=== PATIENT | male | born 1995 | race Caucasian/White ===

== ENCOUNTER 2021-09-03 21:21 | Emergency (ER) | payer BC ==
[2021-09-03] MEDS ORDERED: Ondansetron 4 MG/2 ML SDV IVPUSH ONE (22:12)
[2021-09-03] MEDS ORDERED: Sodium Chloride 0.9% 1,000 ML IV ONE (22:13)
[2021-09-03 22:19] LABS: CORONAVIRUS COVID-19 NAA NEGATIVE (NEGATIVE)
--- NOTE | 2021-09-03 22:21 | EDM.PDOC ---
ED HPI GENERAL MEDICAL PROBLEM - General Chief Complaint: Gastrointestinal Problem Stated Complaint: [facility] Time Seen by Provider: 09/03/21 21:49 Source of Information: Reports: Patient History Limitations: Reports: Physical Impairment (Patient appearing nearly faint, barely able to speak) - History of Present Illness INITIAL COMMENTS - FREE TEXT/NARRATIVE: Mr. Montalvo is a 26-year-old man who now presents the ED complaining of generalized abdominal pain, nausea, and vomiting. Initially he had indicated that his nausea and vomiting had started on Sunday or Sunday, 08/30/2021 or 08/31/2021, but after some further questioning, he acknowledged that it has been chronic for the past 2 years. He describes the character of the pain as "It hurts". He states that it is constant, and that he has not identified any modifiers. The patient states that he saw a reflexologist in [place] about 5 or 6 months ago, and then an EGD was performed. Initially he stated that the EGD demonstrated gastritis and a polyp, but he later stated that the EGD found nothing. He states that he was prescribed pantoprazole 40 mg, and that he takes (either 1 or 2 tablets of it) every morning. The patient also reports that his face is tingling and that he has bilateral hand cramps. He states that he ran out of his lorazepam 5 or 6 days ago. Medical records acquired from [facility] in [place] indicate that the patient was seen in their ED on both , 09/01/2021 and yesterday, 09/02/2021. He reported on 09/01/2021 that he was suffering from an exacerbation of his chronic daily episodes of hand spasms combined with a feeling of weakness, bilateral arm numbness, chest and abdominal pain, along with facial pain and numbness. He reported that his PCP in [place] had done an extensive work-up and recommended referral to neurology, psychiatry, and gastroenterology. He states that he followed up with a reflexologist, and were unable to find any problem for his epigastric and chest pain. The patient had reported that his mother and sister had similar symptoms as his, and that his sister had been prescribed lorazepam. He reported that he had taken his sisters lorazepam frequently over the years, which helped with some of his symptoms. His sister, however, was no longer seeing her Psychiatrist, and therefore the patient had been unable to get any of her lorazepam for several months, although the ED physician stated that the patient's history is unchanged, and that he reported that he had been in [place] a month ago, and was able to acquire some lorazepam at that time. He later denied that that was the case, stating that it was several months ago. The patient had not followed up with neurology or psychiatry, and he had further reported that he had lost establishment with his PCP in [place]. The patient reported that when the episodes occur, typically once or twice a day, that he is usually able to relax, do focused breathing, and the symptoms would resolve, but when they do not, he typically goes to a hospital to get morphine or Dilaudid, and Valium. He acknowledged that work-ups at the hospitals were unremarkable. Work-up on 09/01/2021 included a CBC, CMP, magnesium level, troponin, CRP, alcohol level, a urinalysis, a urine drug screen, a swab for the SARS-CoV-2 virus, and 2 ECGs. Work-up on 09/02/2021 included a CBC, CMP, magnesium level, phosphorus level, amylase, lipase, troponin, CPK, CRP, ferritin level, alcohol level, and urine drug screen. In both cases, the patient's urine drug screen was positive for benzodiazepines, and was also positive for buprenorphine on 09/01/2021, although negative for buprenorphine on 09/02/2021. His work-ups were otherwise unremarkable. The patient states that following his work-up yesterday, he was discharged with a prescription for Zofran ODT. [facility], the patient's initial BP was found to be elevated at 183/103, with slight bradycardia 58 bpm. He was afebrile, saturating 100% on room air. He appears to be overly dramatic, keeping his eyes closed, barely moving, and speaking in a whisper. Does not appear to be in acute distress. The patient denies having a recent fever, chills, sore throat, ear pain, nasal or sinus congestion, cough, dyspnea, chest pain, palpitations, constipation, diarrhea, urinary symptoms, recent weight gain or weight loss, recent bloody bowel movements or black bowel movements, recent joint aches, headaches, or rashes. The patient does not have a PCP, although he has an appointment to establish a PCP at the [facility] this 09/05/2021. He has received 2 COVID vaccinations, as well as an influenza vaccination this season. Abdominal Pain Score (Numeric/FACES): 5 - Related Data Allergies Allergy/AdvReac Type Severity Reaction Status Date / Time clindamycin Allergy Anaphylactic Verified 09/03/21 21:30 Shock Home Meds: Home Meds Ondansetron [Zofran ODT] 4 mg PO Q6HR PRN 09/03/21 [History] Past Medical History Psychiatric History: Reports: Anxiety (untreated), Depression (untreated), PTSD (untreated) Social & Family History - Tobacco Use Tobacco Use Status *Q: Former Tobacco User Years of Tobacco use: 5 Packs/Tins Daily: 1 Month/Year Tobacco Last Used: Quit smoking 2018 Tobacco Use Comment: Started smoking 2013 - Caffeine Use Caffeine Use: Reports: None - Alcohol Use Alcohol Use History: No - Recreational Drug Use Recreational Drug Use: Yes Drug Use in Last 12 Months: No Recreational Drug Type: Reports: Marijuana/Hashish (last smoked 2018) - Living Situation & Occupation Living situation: Reports: Single, Alone Occupation: Employed ([employer]) ED ROS GENERAL - Review of Systems Review Of Systems: Comprehensive ROS is negative, except as noted in HPI. ED EXAM, GI/ABD - Physical Exam Exam: See Below Exam Limited By: No Limitations General Appearance: No Apparent Distress, Thin Eyes: Bilateral: Normal Appearance, EOMI Ears: Normal External Exam, Hearing Grossly Normal Nose: Normal Inspection Throat/Mouth: Normal Inspection, Normal Lips, Normal Voice, No Airway Compromise Head: Atraumatic, Normocephalic Neck: Normal Inspection, Full Range of Motion Respiratory/Chest: No Respiratory Distress, Lungs Clear, Normal Breath Sounds, No Accessory Muscle Use Cardiovascular: Normal Peripheral Pulses, Regular Rate, Rhythm, No Edema, No Gallop, No JVD, No Murmur, No Rub GI/Abdominal Exam: Normal Bowel Sounds, Soft, Non-Tender (including the epigastrium), No Organomegaly, No Distention, No Abnormal Bruit, No Mass Back Exam: Normal Inspection, Full Range of Motion, NT Extremities: Normal Inspection, Normal Range of Motion, No Pedal Edema, Normal Capillary Refill Neurological: Oriented, No Motor/Sensory Deficits, Other (Patient appearing nearly faint, barely able to speak) Skin Exam: Warm, Dry, Intact, Normal Color, No Rash Course - Vital Signs Last Recorded V/S: Last Vital Signs Temp 36.7 C 09/03/21 21:29 Pulse 58 L 09/03/21 21:29 Resp 18 09/03/21 21:29 BP 183/103 H 09/03/21 21:29 Pulse Ox 100 09/03/21 21:29 - Orders/Labs/Meds Labs: Laboratory Tests 09/03/21 09/03/21 09/03/21 Range/Units 21:37 22:20 22:40 WBC 10.07 H (4.23-9.07) K/mm3 RBC 5.51 (4.63-6.08) M/mm3 Hgb 15.5 (13.7-17.5) gm/dl Hct 44.2 (40.1-51.0) % MCV 80.2 (79.0-92.2) fl MCH 28.1 (25.7-32.2) pg MCHC 35.1 (32.2-35.5) g/dl RDW Std Deviation 39.7 (35.1-43.9) fL Plt Count 210 (163-337) K/mm3 MPV 10.6 (9.4-12.3) fl Neutrophils % (Manual) 75 H (40-60) % Band Neutrophils % 0 (0-10) % Lymphocytes % (Manual) 19 L (20-40) % Atypical Lymphs % 0 % Monocytes % (Manual) 5 (2-10) % Eosinophils % (Manual) 0 L (0.8-7.0) % Basophils % (Manual) 1 (0.2-1.2) Toxic Granulation Few Platelet Estimate Adequate Plt Morphology Comment Normal RBC Morph Comment Normal D-Dimer, Quantitative (0.19-0.50) mg/L Puncture Site Lt radial ABG pH 7.64 H* (7.35-7.45) ABG pCO2 13.8 L* (35.0-45.0) mmHg ABG pO2 117.0 H (80.0-100.0) mmHg ABG HCO3 15.1 L (22.0-26.0) meq/L ABG O2 Saturation 99.5 H (96.0-97.0) % ABG Base Excess -2.9 L (-2-2.0) Felton Test Positive A-a Gradient 16 mmHg O2 Delivery Device Room air FiO2 21.00 (21.00-100.00) % Sodium (136-145) mEq/L Potassium (3.5-5.1) mEq/L Chloride (98-107) mEq/L Carbon Dioxide (21-32) mEq/L Anion Gap (5-15) BUN (7-18) mg/dL Creatinine (0.7-1.3) mg/dL Est Cr Clr Drug Dosing mL/min Estimated GFR (MDRD) (>60) mL/min BUN/Creatinine Ratio (14-18) Glucose (70-99) mg/dL Calcium (8.5-10.1) mg/dL Magnesium (1.8-2.4) mg/dL Total Bilirubin (0.2-1.0) mg/dL AST (15-37) U/L ALT (16-63) U/L Alkaline Phosphatase (46-116) U/L Total Protein (6.4-8.2) g/dl Albumin (3.4-5.0) g/dl Globulin gm/dL Albumin/Globulin Ratio (1-2) Lipase (73-393) U/L Urine Opiates Screen (FDMHBD=038) Ur Buprenorphine Scrn (CUTOFF=10) Ur Oxycodone Screen (FNY9RL=226) Urine Methadone Screen (LZY7GF=907) Ur Propoxyphene Screen (ACRRYK=601) Ur Barbiturates Screen (BKUXWI=160) Ur Tricyclics Screen (JPPNHJ=243) Ur Phencyclidine Scrn (CUTOFF=25) Ur Amphetamine Screen (YVWWQK=576) U Methamphetamines Scrn (QFOHYL=577) U Benzodiazepines Scrn (CXJBEV=209) U Cocaine Metab Screen (PSWWOB=290) U Marijuana (THC) Screen (CUTOFF=50) Influenza Type A RNA Negative (NEGATIVE) Influenza Type B RNA Negative (NEGATIVE) SARS-CoV-2 RNA (BYRON) Negative (NEGATIVE) 09/03/21 09/03/21 09/03/21 Range/Units 22:40 22:40 23:34 WBC (4.23-9.07) K/mm3 RBC (4.63-6.08) M/mm3 Hgb (13.7-17.5) gm/dl Hct (40.1-51.0) % MCV (79.0-92.2) fl MCH (25.7-32.2) pg MCHC (32.2-35.5) g/dl RDW Std Deviation (35.1-43.9) fL Plt Count (163-337) K/mm3 MPV (9.4-12.3) fl Neutrophils % (Manual) (40-60) % Band Neutrophils % (0-10) % Lymphocytes % (Manual) (20-40) % Atypical Lymphs % % Monocytes % (Manual) (2-10) % Eosinophils % (Manual) (0.8-7.0) % Basophils % (Manual) (0.2-1.2) Toxic Granulation Platelet Estimate Plt Morphology Comment RBC Morph Comment D-Dimer, Quantitative < 0.19 L (0.19-0.50) mg/L Puncture Site ABG pH (7.35-7.45) ABG pCO2 (35.0-45.0) mmHg ABG pO2 (80.0-100.0) mmHg ABG HCO3 (22.0-26.0) meq/L ABG O2 Saturation (96.0-97.0) % ABG Base Excess (-2-2.0) Felton Test A-a Gradient mmHg O2 Delivery Device FiO2 (21.00-100.00) % Sodium 141 (136-145) mEq/L Potassium 3.3 L (3.5-5.1) mEq/L Chloride 104 (98-107) mEq/L Carbon Dioxide 18 L (21-32) mEq/L Anion Gap 22.3 H (5-15) BUN 9 (7-18) mg/dL Creatinine 1.1 (0.7-1.3) mg/dL Est Cr Clr Drug Dosing 92.21 mL/min Estimated GFR (MDRD) > 60 (>60) mL/min BUN/Creatinine Ratio 8.2 L (14-18) Glucose 108 H (70-99) mg/dL Calcium 9.8 (8.5-10.1) mg/dL Magnesium 2.3 (1.8-2.4) mg/dL Total Bilirubin 1.2 H (0.2-1.0) mg/dL AST 21 (15-37) U/L ALT 23 (16-63) U/L Alkaline Phosphatase 56 (46-116) U/L Total Protein 9.3 H (6.4-8.2) g/dl Albumin 5.2 H (3.4-5.0) g/dl Globulin 4.1 gm/dL Albumin/Globulin Ratio 1.3 (1-2) Lipase 82 (73-393) U/L Urine Opiates Screen Negative (AUDUEN=459) Ur Buprenorphine Scrn Negative (CUTOFF=10) Ur Oxycodone Screen Negative (SKN4WX=229) Urine Methadone Screen Negative (ZME6SP=833) Ur Propoxyphene Screen Negative (VXPRDK=253) Ur Barbiturates Screen Negative (DAJYHV=866) Ur Tricyclics Screen Negative (VQLYES=069) Ur Phencyclidine Scrn Negative (CUTOFF=25) Ur Amphetamine Screen Negative (VJKUYE=502) U Methamphetamines Scrn Negative (UWNDSM=994) U Benzodiazepines Scrn Presumptive positive H (GGUVGC=599) U Cocaine Metab Screen Negative (VVMOPS=805) U Marijuana (THC) Screen Presumptive positive H (CUTOFF=50) Influenza Type A RNA (NEGATIVE) Influenza Type B RNA (NEGATIVE) SARS-CoV-2 RNA (BYRON) (NEGATIVE) Meds: Medications Discontinued Medications Generic Name Dose Route Start Last Admin Trade Name Freq PRN Reason Stop Dose Admin Al Hydroxide/Mg Hydroxide 30 0 ml 09/03/21 23:43 09/04/21 00:07 ml/ Lidocaine HCl 15 ml PO 09/03/21 23:44 45 ml ONETIME STA Administration Diatrizoate Meglum/Diatrizoate Sod 120 ml 09/04/21 00:33 09/04/21 00:35 Diatrizoate Meglumine/Diatrizoate Sodium 37% 120 Ml Bottle PO 09/04/21 00:34 120 ml ONETIME ONE Administration Sodium Chloride 1,000 mls @ 999 mls/hr 09/03/21 22:13 09/03/21 22:38 Normal Saline IV 09/03/21 23:13 999 mls/hr ONETIME ONE Administration Iopamidol 100 ml 09/03/21 22:55 09/04/21 00:34 Iopamidol 612 Mg/Ml 100 Ml Bottle IVPUSH 09/03/21 22:56 100 ml ONETIME ONE Administration Iopamidol 100 ml 09/04/21 00:33 Iopamidol 612 Mg/Ml 100 Ml Bottle IVPUSH 09/04/21 00:34 ONETIME ONE Ondansetron HCl 4 mg 09/03/21 22:12 09/03/21 22:38 Ondansetron 4 Mg/2 Ml Sdv IVPUSH 09/03/21 22:13 4 mg ONETIME ONE Administration Sodium Chloride 10 ml 09/03/21 22:55 09/04/21 00:34 Sodium Chloride 0.9% 10 Ml Sdv FLUSH 09/03/21 22:56 10 ml ONETIME ONE Administration Sodium Chloride 10 ml 09/04/21 00:33 Sodium Chloride 0.9% 10 Ml Sdv FLUSH 09/04/21 00:34 ONETIME ONE - Re-Assessments/Exams Free Text/Narrative Re-Assessment/Exam: 09/03/21 22:14 A swab for the SARS-CoV-2 virus and influenza A + B viruses was ordered at triage. I have ordered a work-up that includes several blood tests, an ABG, a urine drug screen, and a CT of the abdomen pelvis with oral and IV contrast. In the meantime, the patient will be given IV fluid and IV Zofran. 09/03/21 23:32 The patient's CBC is remarkable for slight leukocytosis of 10.07, and is otherwise unremarkable. His CMP is remarkable for slight hypokalemia of 3.3, and a bicarbonate depressed at 18.0 with an anion gap elevated at 22.3, and slight hyperglycemia of 108, with the remainder of his CMP being unremarkable. His magnesium level is within normal limits at 2.3. His lipase level is within normal limits at 82. His D-dimer is undetectably low. His ABG demonstrates a chronic primary respiratory alkalosis with secondary metabolic alkalosis. The patient has not yet provided a urine sample for a urine drug screen. 09/04/21 01:08 The patient's urine drug screen is positive for benzodiazepines and marijuana, and is otherwise negative. 09/04/21 01:22 CT of the abdomen and pelvis with oral and IV contrast is read by Damon as "No acute changes identified." 09/04/21 01:26 Notified by Elise LIANG that the patient is requesting a hot shower. 09/04/21 01:43 Test results discussed with the patient. As above, today's work-up is grossly unremarkable, with the exception that he is hyperventilating, and that his urine drug screen is positive for marijuana, despite his telling me that he has not smoked marijuana since 2019. In conjunction with his requesting a hot shower, there is a strong likelihood that the patient is suffering from cannabis hyperemesis syndrome, in addition to his untreated anxiety. Going forward, I recommended that he follow-up with [facility] [facility] or whichever counseling service is available in [place], in order to be started on an appropriate long-term antianxiety medication. He can also establish a PCP and arrange for a repeat EGD, although he stated that his previous EGD did not show anything, therefore he is not really interested in another. He stated that he is reluctant to leave the ED, in part because he came by ambulance and does not have a ride home. I explained, however, that the purpose of the ED is to determine if a patient's presentation constitutes a medical emergency, and in h is case, there is not. I have no choice but to discharge him. Departure - Departure Time of Disposition: 01:48 Disposition: Home, Self-Care 01 Condition: Good Clinical Impression: Cannabis hyperemesis syndrome concurrent with and due to cannabis abuse, H yperventilation, Anxiety - Discharge Information *PRESCRIPTION DRUG MONITORING PROGRAM REVIEWED*: Not Applicable *COPY OF PRESCRIPTION DRUG MONITORING REPORT IN PATIENT BATSHEVA: Not Applicable Instructions: Hyperventilation, Managing Anxiety, Adult, Cannabinoid Hyperemesis Syndrome Referrals: PCP,None [Primary Care Provider] - Forms: ED Department Discharge Additional Instructions: OrYou were seen in the emergency room chronic abdominal pain, nausea, and vomiting. Work-up in the ER included several blood tests, an arterial blood gas, a urine drug screen, a swab for the SARS-CoV-2 virus and influenza A + B viruses, and a CT of your abdomen and pelvis with oral and IV contrast. Your arterial blood gas confirmed that you are hyperventilating. Your urine drug screen returned positive for both benzodiazepines and marijuana. The remainder of your work-up, including the CT scan of your abdomen and pelvis, was unremarkable. Based on your history, physical exam, and ER tests, it appears that you are suffering from uncontrolled anxiety and, possibly, cannabis hyperemesis syndrome. We recommend that you follow-up with [facility] [facility], or whichever counseling service is available in [place], to get started on an appropriate long-term antianxiety medication. We also recommend that you establish a primary care provider. They can arrange for you to undergo another EGD (scope of your stomach), if felt appropriate. We strongly recommend that you discontinue ingestion of marijuana in any form. If any other problems, please do not hesitate to return to the ER.
[2021-09-03] MEDS ORDERED: Iopamidol 612 MG/ML 100 ML Bottle IVPUSH ONE (22:55)
[2021-09-03] MEDS ORDERED: Sodium Chloride 0.9% 10 ML SDV FLUSH ONE (22:55)
[2021-09-03] MEDS ORDERED: Alum Hydrox/Mag Hydrox/Simeth 30 ML, Lidocaine 2% 15 ML PO STA ×2 (23:43)
[2021-09-04] MEDS ORDERED: Iopamidol 612 MG/ML 100 ML Bottle IVPUSH ONE (00:33)
[2021-09-04] MEDS ORDERED: Diatrizoate Meglumine/Diatrizoate Sodium 37% 120 ML Bottle PO ONE (00:33)
[2021-09-04] MEDS ORDERED: Sodium Chloride 0.9% 10 ML SDV FLUSH ONE (00:33)
--- NOTE | 2021-09-04 08:29 | CT ---
CT abdomen and pelvis Technique: Multiple axial sections were obtained from above the dome of the diaphragm inferiorly through the pubic symphysis. Intravenous and oral contrast were utilized. Delayed images were also obtained through the bladder. Comparison: No prior CT abdomen or pelvis study is available. Findings: Visualized lung bases show nothing acute. Liver contains no focal parenchymal abnormality. Spleen appears within normal limits. Several incidental accessory splenic tissue nodules are seen medial to the spleen. Gallbladder contains no calcified gallstones. Adrenal glands show no nodule. Pancreas is within normal limits. Kidneys show symmetric contrast enhancement. No hydronephrosis or mass is seen. Delayed images show contrast within the distal ureters and the bladder. Abdominal aorta shows no aneurysm. No retroperitoneal adenopathy or mesenteric abnormalities are seen. Appendix is seen which is normal. No pelvic mass or adenopathy is seen. No free fluid or inflammatory change is seen. Impression: 1. Nothing acute is appreciated on CT study of the abdomen and pelvis. 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
== END 2021-09-04 02:09 | disposition home or self-care (01) ==
LOC: JD.ED 21:21
DX: F12.188 Cannabis abuse with other cannabis-induced disorder (principal); R11.10 Vomiting, unspecified; R06.4 Hyperventilation; F41.9 Anxiety disorder, unspecified; Z88.1 Allergy status to other antibiotic agents; Z87.891 Personal history of nicotine dependence; Z20.822 Contact with and (suspected) exposure to COVID-19
CPT/HCPCS: 0240U; 36415; 36600; 74177; 80053; 80306; 82803; 83690; 83735; 85007; 85027; 85379; 96374; 99285; A9270; J2405; J7030; Q9963; Q9967; 99284

== ENCOUNTER 2021-09-04 02:38 | Emergency (ER) | payer BC | END 2021-09-04 05:45 | disposition left against medical advice (07) | LOC: JD.ED 02:38 | DX: Z53.21 Procedure and treatment not carried out due to patient leaving prior to being seen by health care provider (principal) ==

== ENCOUNTER 2022-01-31 07:49 | Emergency (ER) | payer SELFPAY ==
[2022-01-31] MEDS ORDERED: LORazepam 2 MG/ML SDV IVPUSH ONE ×2 (08:22→10:01)
[2022-01-31] MEDS ORDERED: Ondansetron 4 MG/2 ML SDV IVPUSH ONE (08:22)
[2022-01-31] MEDS ORDERED: Sodium Chloride 0.9% 10 ML Syringe FLUSH PRN (08:23)
[2022-01-31] MEDS ORDERED: Ketorolac 30 MG/ML SDV IVPUSH ONE (08:23)
[2022-01-31] MEDS: Sodium Chloride 0.9% 1,000 ML IV SCH ×2 (08:33→11:04)
[2022-01-31] MEDS ORDERED: HYDROmorphone 0.5 MG/0.5 ML Syringe IVPUSH ONE (09:36)
[2022-01-31] MEDS ORDERED: diphenhydrAMINE 50 MG/ML SDV IVPUSH ONE (10:47)
[2022-01-31] MEDS ORDERED: Metoclopramide 10 MG/2 ML SDV IVPUSH ONE (10:47)
[2022-01-31] MEDS ORDERED: Sodium Chloride 0.9% 1,000 ML IV SCH (11:00)
[2022-01-31] MEDS ORDERED: Ondansetron 4 MG Tab.DIS PO ONE (12:07)
== END 2022-01-31 12:15 | disposition home or self-care (01) ==
LOC: JD.ED 07:49
DX: R10.10 Upper abdominal pain, unspecified (principal); R11.2 Nausea with vomiting, unspecified; F41.9 Anxiety disorder, unspecified
CPT/HCPCS: 36415; 80053; 83690; 85025; 96361; 96374; 96375; 96376; 99284; A9270; J1170; J1200; J1885; J2060; J2405; J2765; J3490; J7030

== ENCOUNTER 2022-02-01 08:14 | Observation (INO) | payer SELFPAY ==
[2022-02-01] MEDS ORDERED: Sodium Chloride 0.9% 1,000 ML IV STA (08:54)
[2022-02-01] MEDS ORDERED: Ondansetron 4 MG/2 ML SDV IVPUSH ONE (08:54)
[2022-02-01] MEDS ORDERED: Sodium Chloride 0.9% 10 ML Syringe FLUSH PRN ×2 (08:54→08:59)
[2022-02-01] MEDS ORDERED: HYDROmorphone 1 MG/ML Syringe IVPUSH ONE (08:56)
[2022-02-01] MEDS ORDERED: Iopamidol 612 MG/ML 100 ML Bottle IVPUSH ONE (08:59)
[2022-02-01] MEDS ORDERED: Famotidine 20 MG/2 ML SDV IVPUSH ONE (11:48)
[2022-02-01] MEDS ORDERED: Alum Hydrox/Mag Hydrox/Simeth 30 ML, Lidocaine 2% 15 ML PO ONE ×2 (11:48)
[2022-02-01] MEDS ORDERED: Acetaminophen 325 MG Tab PO PRN (13:07)
[2022-02-01] MEDS ORDERED: Ondansetron 4 MG/2 ML SDV IV PRN (13:20)
[2022-02-01] MEDS: Sodium Chloride 0.9% 1,000 ML IV SCH (17:02)
[2022-02-01] MEDS: Pantoprazole 40 MG Vial IVPUSH SCH (17:02)
[2022-02-01] MEDS ORDERED: Temazepam 15 MG Cap PO PRN (17:38)
[2022-02-01] MEDS: oxyCODONE 5 MG Tab PO PRN ×2 (17:50→23:45)
[2022-02-01] MEDS ORDERED: Aluminum Hydroxide/Magnesium Hydroxide/Simethicone Susp 30 ML Cup PO PRN (17:55)
[2022-02-01] MEDS: Morphine 2 MG/ML SYRINGE IVPUSH PRN ×2 (18:37→21:42)
[2022-02-01] MEDS: Promethazine 25 MG in Sodium Chloride 0.9% 50 ML IV PRN (19:21)
[2022-02-01] MEDS ORDERED: Metoclopramide 10 MG/2 ML SDV IVPUSH PRN (23:36)
[2022-02-02] MEDS: Morphine 2 MG/ML SYRINGE IVPUSH PRN ×2 (00:35→04:22)
[2022-02-02] MEDS: Pantoprazole 40 MG Vial IVPUSH SCH ×2 (00:45→14:22)
[2022-02-02] MEDS: Sodium Chloride 0.9% 1,000 ML IV SCH ×3 (04:46→22:37)
[2022-02-02] MEDS: Promethazine 25 MG in Sodium Chloride 0.9% 50 ML IV PRN (04:46)
[2022-02-02] MEDS ORDERED: HYDROmorphone 1 MG/ML Syringe IVPUSH ONE (08:00)
[2022-02-02] MEDS: Potassium Chloride 10 MEQ in Premix Bag 1 BAG IV SCH ×2 (09:33→10:58)
[2022-02-02] MEDS: Enoxaparin 40 MG/0.4 ML Syringe SUBCUT SCH (10:15)
[2022-02-02] MEDS: Alum Hydrox/Mag Hydrox/Simeth 30 ML, Lidocaine 2% 15 ML PO SCH ×6 (10:59→21:07)
[2022-02-02] MEDS: HYDROmorphone 1 MG/ML Syringe IVPUSH PRN ×5 (10:59→23:53)
[2022-02-02] MEDS: FLUoxetine 20 MG Cap PO SCH (10:59)
[2022-02-02] MEDS: Ondansetron 4 MG/2 ML SDV IV PRN (15:20)
[2022-02-03] MEDS: Ondansetron 4 MG/2 ML SDV IV PRN ×4 (01:31→16:25)
[2022-02-03] MEDS: Pantoprazole 40 MG Vial IVPUSH SCH ×2 (01:31→14:29)
[2022-02-03] MEDS: Alum Hydrox/Mag Hydrox/Simeth 30 ML, Lidocaine 2% 15 ML PO SCH ×8 (02:41→20:05)
[2022-02-03] MEDS: HYDROmorphone 1 MG/ML Syringe IVPUSH PRN ×6 (04:20→23:29)
[2022-02-03] MEDS: Sodium Chloride 0.9% 1,000 ML IV SCH ×2 (06:20→14:48)
[2022-02-03] MEDS: FLUoxetine 20 MG Cap PO SCH (08:43)
[2022-02-03] MEDS: ClonazePAM 1 MG Tab PO PRN ×2 (08:44→20:05)
[2022-02-03] MEDS: Enoxaparin 40 MG/0.4 ML Syringe SUBCUT SCH (08:44)
[2022-02-03] MEDS: oxyCODONE 5 MG Tab PO PRN ×3 (10:24→18:37)
[2022-02-03] MEDS ORDERED: Potassium Chloride 20 MEQ Tab.ER PO ONE (18:28)
[2022-02-04] MEDS: Alum Hydrox/Mag Hydrox/Simeth 30 ML, Lidocaine 2% 15 ML PO SCH ×4 (02:40→09:16)
[2022-02-04] MEDS: Pantoprazole 40 MG Vial IVPUSH SCH (02:42)
[2022-02-04] MEDS: HYDROmorphone 1 MG/ML Syringe IVPUSH PRN ×3 (02:45→09:25)
[2022-02-04] MEDS: Sodium Chloride 0.9% 1,000 ML IV SCH (02:48)
[2022-02-04] MEDS: ClonazePAM 1 MG Tab PO PRN (06:24)
[2022-02-04] MEDS: Ondansetron 4 MG/2 ML SDV IV PRN (06:30)
[2022-02-04] MEDS: Enoxaparin 40 MG/0.4 ML Syringe SUBCUT SCH (09:16)
[2022-02-04] MEDS: FLUoxetine 20 MG Cap PO SCH (09:25)
== END 2022-02-04 11:15 | disposition home or self-care (01) ==
LOC: JD.ED 08:14 → JD.MS 13:07
PROVIDERS: ADMIT Internal Medicine; ATTEND Internal Medicine
DX: R11.2 Nausea with vomiting, unspecified (principal); F12.188 Cannabis abuse with other cannabis-induced disorder; F41.9 Anxiety disorder, unspecified; E86.0 Dehydration; F32.A Depression, unspecified; Z88.1 Allergy status to other antibiotic agents; Z79.899 Other long term (current) drug therapy
CPT/HCPCS: 36415; 74177; 76705; 80048; 80053; 80306; 81001; 83615; 83690; 83735; 85025; 87338; 96361; 96365; 96366; 96367; 96372; 96375; 96376; 99285; A9270; C9113; G0378; J1170; J1650; J2270; J2405; J2550; J2765; J3480; J3490; J7030; Q9967; 96374

== ENCOUNTER 2022-04-08 05:55 | Emergency (ER) | payer OTHER ==
[2022-04-08] MEDS ORDERED: Sodium Chloride 0.9% 10 ML Syringe FLUSH PRN (06:20)
[2022-04-08] MEDS ORDERED: Sodium Chloride 0.9% 1,000 ML IV STA (06:20)
[2022-04-08] MEDS ORDERED: Ondansetron 4 MG/2 ML SDV IVPUSH ONE (06:20)
[2022-04-08] MEDS ORDERED: HYDROmorphone 0.5 MG/0.5 ML Syringe IVPUSH ONE ×2 (06:22→07:48)
[2022-04-08] MEDS ORDERED: LORazepam 2 MG/ML SDV IVPUSH ONE (06:22)
[2022-04-08] MEDS ORDERED: Lactated Ringers 1,000 ML IV ONE (07:40)
== END 2022-04-08 08:43 | disposition home or self-care (01) ==
LOC: SUPCPDRO 05:55 → JD.ED 05:55
DX: R19.7 Diarrhea, unspecified (principal); R11.2 Nausea with vomiting, unspecified; Z88.1 Allergy status to other antibiotic agents; Z79.899 Other long term (current) drug therapy
CPT/HCPCS: 36415; 80053; 80306; 81001; 83690; 83735; 85025; 96361; 96374; 96375; 96376; 99284; J1170; J2060; J2405; J3490; J7030; J7120